=== PATIENT | male | born 1935 | race Caucasian/White ===

== ENCOUNTER 2021-09-24 16:15 | Inpatient (IN) ==
[2021-09-24 16:52] LABS: POC Blood Urea Nitrogen 67 mg/dL (6-20); POC CO2 20 mmol/L (22-30); POC Calcium, Ionized 1.26 mmEq/L (1.16-1.32); POC Chloride 103 mEq/L (96-108); POC Creatinine 0.8 mg/dL (0.6-1.2); POC Glucose, Random 136 mg/dL (70-105); POC Hematocrit 25 % (41-55); POC Potassium 4.4 mEql/L (3.3-5.1); POC Sodium 133 mEq/L (133-145)
[2021-09-24 17:11] LABS: Basophils # (Auto) 0.03 K/mcL (0.00-0.30); Basophils % (Auto) 0.3 % (0.0-2.0); Eosinophils # (Auto) 0.04 K/mcL (0.00-0.70); Eosinophils % (Auto) 0.4 % (0.0-7.0); Hemoglobin 8.7 g/dL (13.7-17.5); Lymphocytes # (Auto) 1.78 K/mcL (1.50-4.80); Lymphocytes % (Auto) 16.4 % (15.5-49.0); Mean Cell Volume 102.3 fL (80.0-100.0); Mean Corpuscular HGB Conc 32.2 g/dL (31.0-36.0); Mean Platelet Volume 9.5 fL (7.4-10.4); Monocytes # (Auto) 1.15 K/mcL (0.10-0.90); Monocytes % (Auto) 10.6 % (1.0-12.0); Neutrophils % (Auto) 72.3 % (38.0-78.0); Platelet Count 226 K/mcL (140-440); RBC 2.64 M/mcL (4.63-6.08); Red Cell Distribution Width 12.4 % (11.5-14.5); WBC 10.8 K/mcL (4.5-11.0)
[2021-09-24] MEDS ORDERED: 0.9 % SODIUM CHLORIDE 1,000 ML IV ONE (17:11)
--- NOTE | 2021-09-24 17:29 | Emergency Department Note ---
Dizziness HPI <Ember Bower PA-C - Last Filed: 09/24/21 19:16> General Chief Complaint: Dizziness Stated Complaint: dizziness Time Seen by Provider: 09/24/21 16:25 Source: patient Mode of arrival: ambulatory History of Present Illness HPI Narrative: 86-year-old male with history of atrial fibrillation on Eliquis presents with acute onset lightheadedness and dizziness this morning. He got up to walk his dogs and felt dizzy and had to lean against his kitchen counter. He had some associated shortness of breath, no palpitations. He did not syncopize. He denies chest pain. Patient had a dark, tarry loose stool this morning. He has no history of GI bleeding. Denies nausea or vomiting. Denies abdominal pain. He has not missed any doses of his Eliquis took his evening dose already today. Related Data Home Medications Medication Instructions Recorded Confirmed apixaban 5 mg tablet (Eliquis) 5 mg PO BID 03/15/18 09/24/21 potassium chloride 20 mEq 20 meq PO QDAY 01/10/20 09/24/21 tablet,extended release atorvastatin 20 mg tablet (Lipitor) 20 mg PO QDAY 02/05/20 09/24/21 omeprazole 20 mg capsule,delayed 20 mg PO QDAY 08/07/20 09/24/21 release furosemide 40 mg tablet 20 mg PO QAM tab 09/22/21 09/24/21 dorzolamide 22.3 mg-timolol 6.8 1 drp OPHTHALMIC (EYE) BID 09/24/21 09/24/21 mg/mL eye drops Previous Rx's Medication Instructions Recorded alfuzosin 10 mg tablet,extended 10 mg PO QDAY #90 tab 04/10/18 release 24 hr (Uroxatral) finasteride 5 mg tablet (Proscar) 5 mg PO QDAY #90 tab 04/10/18 Allergies Allergy/AdvReac Type Severity Reaction Status Date / Time No Known Drug Allergies Allergy Verified 08/10/21 15:52 Review of Systems <Ember Bower PA-C - Last Filed: 09/24/21 19:16> ROS ROS Narrative: Narrative: All systems ED: reviewed and negative except as stated. PFSH <Ember Bower PA-C - Last Filed: 09/24/21 19:16> Narrative Patient History Narrative: Narrative: Medical/Surgical/Family History All Active Problems (Updated 09/24/21 @ 19:54 by Bowen Carrillo MD) GI bleeding (Acute) Sleep disturbance, unspecified (Acute) Close exposure to COVID-19 virus (Acute) GERD with apnea (Acute) Hiatal hernia (Acute) Elevated diaphragm (Acute) Pulmonary nodules (Acute) ZEESHAN on CPAP (Acute) Dizziness (Chronic) TIA (transient ischemic attack) (Chronic) Sinus bradycardia (Chronic) Shortness of breath (Chronic) Pulmonary hypertension (Chronic) Elevated LFTs (Chronic) Leg pain, right (Chronic) Right shoulder pain (Chronic) Macular degeneration (Chronic) Encounter for Health Maintenance Examination in Adult (Chronic) Spondylolysis of lumbosacral region (Chronic) Sleep apnea (Chronic) Paroxysmal atrial fibrillation (Chronic) Obstructive uropathy (Chronic) Low back pain (Chronic) Knee pain (Chronic) Insomnia (Chronic) Hyperlipidemia (Chronic) Hematuria (Chronic 03/20/14) Hearing loss (Chronic) Glaucoma (Chronic) Dupuytren's contracture (Chronic) Anemia (Chronic 03/20/14) TIA (transient ischemic attack) (Chronic) Spondylolysis of lumbosacral region (Chronic) Sleep apnea (Chronic) Paroxysmal atrial fibrillation (Chronic) Obstructive uropathy (Chronic) Low back pain (Chronic) Knee pain, bilateral (Chronic) Insomnia (Chronic) Hyperlipidemia (Chronic) Hematuria (Chronic) Hearing loss (Chronic) Glaucoma (Chronic) Dupuytren's contracture (Chronic) Anemia (Chronic) Dermatochalasis of right upper eyelid (Chronic) Presence of intraocular lens (Chronic) Vitreous degeneration of both eyes (Chronic) Puckering of macula, 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 Christensen Glaucoma Follows with Dr. Christensen Hearing loss uses hearing aids Hearing loss uses hearing aids Hematuria onset 03/20/14 Hematuria (03/20/14) Hiatal hernia Hyperlipidemia Hyperlipidemia Insomnia 2010 - stable on generic Ambien Insomnia 2010 stable on generic ambien Keratoconjunctivitis sicca 05/05/2015 Amparo Knee pain Bilateral knee arthropasty 2006 Knee pain, bilateral bilateral knee arthroplasty 2005 Leg pain, right Low back pain post lumbar surgery with flare of symtoms 11/2010. Repeat MRI; [facility] sequencing in 11/2010 Low back pain Post lumbar surgery with flare of symptoms 11/2010. Repeat MRI; Pain Clinic sequencing 11/2010. Macular degeneration Obstructive uropathy Obstructive uropathy ZEESHAN on CPAP Paroxysmal atrial fibrillation S/P ablation in 2004; continue Sotalol with yearly f/up, usually in March with Dr. Washburn. Paroxysmal atrial fibrillation S/P ablation in 2004; continue Sotalol with yearly follow up, usually each March with Dr. Washburn. Presence of intraocular lens 05/05/2015 Dr Christensen Primary open angle glaucoma 05/05/2015, Amparo Puckering of macula, right eye 05/05/2015 Dr Christensen Pulmonary hypertension Pulmonary nodules Right shoulder pain Shortness of breath Sinus bradycardia Sleep apnea off CPAP since 06/2009 Sleep apnea Off CPAP since 06/2009 Sleep disturbance, unspecified Situational adjustment to his loss of spouse. Spondylolysis of lumbosacral region Spondylolysis of lumbosacral region TIA (transient ischemic attack) TIA (transient ischemic attack) Vitreous degeneration of both eyes 05/05/2015 Dr Christensen Surgical History History of adenoidectomy History of appendectomy History of cardioversion History of cataract surgery Bilateral eye surgery for glaucoma and cataracts History of colonoscopy (11/23/11) Dr. Tan-Uncomplicated internal hemorrhoids and diverticulosis. Recommended repeat in 10 years. History of hand surgery Trigger finger repair-Bilateral release of all fingers. 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 Status post Dupuytren's fasciectomy 2004 Family History Sister Heart valve disorder Sister had heart valve replacement Parkinson's disease Father , at age 52 of heart attack after smoking for many years Myocardial infarction acute Mother , Mother with a history of TIAs TIA (transient ischemic attack) Social History Smoking Status: Never smoker Alcohol Intake Frequency: 0-2 drinks per day Substance Use: does not use Exam <Ember Bower PA-C - Last Filed: 09/24/21 19:16> Narrative Narrative: Narrative: Course <Ember Bower PA-C - Last Filed: 09/24/21 19:16> Course Course Narrative: 86-year-old male presents for dizziness and lightheadedness Reevaluation(s) Reevaluation #1: Obtain basic labs to query for acute blood loss anemia or electrolyte disturbances Obtain orthostatic vital signs and EKG Reevaluation #2: Patient positive orthostatic vital signs with laying SBP 124 mmHg that dropped to 93 mmHg with sitting, heart rate went from 79 bpm 208 bpm. EKG shows normal sinus rhythm with a left bundle branch block. This is unchanged from 01/24/2016. Negative [place] criteria. Reevaluation #3: Upon further questioning the patient endorses that he had a black tarry stool this morning. I did perform a bedside stool guaiac and he had bekah melanic stool and positive guaiac. Give 40 mg IV Protonix x1 dose and type and crossmatch and administer 2 units PRBCs. Consultations Consultation #1: Dr. Carrillo, general surgery has agreed to accept the patient for admission. He would like me to give 2 units PRBCs in the setting of orthostasis and acute bloo d loss anemia secondary to upper GI bleed. Patient is agreeable to admission. Vital Signs Vital signs: Vital Signs Temperature 98.5 F 09/24/21 16:16 Pulse Rate 107 H 09/24/21 16:16 Respiratory Rate 16 09/24/21 16:16 Blood Pressure 132/68 09/24/21 16:16 Pulse Oximetry (%) 100 09/24/21 16:16 Temperature 98.0 F 09/25/21 08:26 Pulse Rate 64 09/25/21 10:16 Respiratory Rate 13 09/25/21 10:16 Blood Pressure 143/64 09/25/21 10:16 Pulse Oximetry (%) 100 09/25/21 10:16 MDM <Ember Bower PA-C - Last Filed: 09/24/21 19:16> MDM Narrative Medical decision making narrative: Upper GI bleed Acute blood loss anemia Patient is been accepted for admission by Dr. Carrillo. 2 units of PRBCs have been ordered. He was given 40 mg of IV Protonix. Plan will be for upper endoscopy tomorrow. Lab Data Result diagrams: 09/25/21 06:00 09/25/21 06:00 Labs: Lab Results 09/24/21 09/24/21 09/24/21 Range/Units 16:36 16:36 16:36 WBC 10.8 (4.5-11.0) K/mcL RBC 2.64 L (4.63-6.08) M/mcL Hgb 8.7 L (13.7-17.5) g/dL Hct 27.0 L (40.1-51.0) % POC Hct 25 L (41-55) % MCV 102.3 H (80.0-100.0) fL MCH 33.0 (26.0-34.0) pg MCHC 32.2 (31.0-36.0) g/dL RDW 12.4 (11.5-14.5) % Plt Count 226 (140-440) K/mcL MPV 9.5 (7.4-10.4) fL Neut % (Auto) 72.3 (38.0-78.0) % Lymph % (Auto) 16.4 (15.5-49.0) % [place] % (Auto) 10.6 (1.0-12.0) % Eos % (Auto) 0.4 (0.0-7.0) % Baso % (Auto) 0.3 (0.0-2.0) % Lymph # (Auto) 1.78 (1.50-4.80) K/mcL [place] # (Auto) 1.15 H (0.10-0.90) K/mcL Eos # (Auto) 0.04 (0.00-0.70) K/mcL Baso # (Auto) 0.03 (0.00-0.30) K/mcL Absolute Neutrophils 7.83 (1.80-8.00) K/mcL POC Sodium 133 (133-145) mEq/L POC Potassium 4.4 (3.3-5.1) mEql/L POC Chloride 103 (96-108) mEq/L POC Total CO2 20 L (22-30) mmol/L POC BUN 67 H (6-20) mg/dL POC Creatinine 0.8 (0.6-1.2) mg/dL POC Glucose 136 H (70-105) mg/dL POC WB Ioniz Calcium 1.26 (1.16-1.32) mmEq/L TSH 3.45 (0.27-5.01) uIU/mL Urine Color Urine Appearance (Clear) Urine pH (5.0-9.0) Ur Specific [place] (1.000-1.035) Urine Protein (Negative) mg/dL Urine Glucose (UA) (Negative) mg/dL Urine Ketones (Negative) mg/dL Urine Occult Blood (Negative) mg/dL Urine Nitrate (Negative) Urine Bilirubin (Negative) mg/dL Urine Urobilinogen mg/dL Ur Leukocyte Esterase (Negative) /uL Ur Culture Indicated? 09/24/21 Range/Units 19:05 WBC (4.5-11.0) K/mcL RBC (4.63-6.08) M/mcL Hgb (13.7-17.5) g/dL Hct (40.1-51.0) % POC Hct (41-55) % MCV (80.0-100.0) fL MCH (26.0-34.0) pg MCHC (31.0-36.0) g/dL RDW (11.5-14.5) % Plt Count (140-440) K/mcL MPV (7.4-10.4) fL Neut % (Auto) (38.0-78.0) % Lymph % (Auto) (15.5-49.0) % [place] % (Auto) (1.0-12.0) % Eos % (Auto) (0.0-7.0) % Baso % (Auto) (0.0-2.0) % Lymph # (Auto) (1.50-4.80) K/mcL [place] # (Auto) (0.10-0.90) K/mcL Eos # (Auto) (0.00-0.70) K/mcL Baso # (Auto) (0.00-0.30) K/mcL Absolute Neutrophils (1.80-8.00) K/mcL POC Sodium (133-145) mEq/L POC Potassium (3.3-5.1) mEql/L POC Chloride (96-108) mEq/L POC Total CO2 (22-30) mmol/L POC BUN (6-20) mg/dL POC Creatinine (0.6-1.2) mg/dL POC Glucose (70-105) mg/dL POC WB Ioniz Calcium (1.16-1.32) mmEq/L TSH (0.27-5.01) uIU/mL Urine Color Yellow Urine Appearance Clear (Clear) Urine pH 6.0 (5.0-9.0) Ur Specific [place] 1.015 (1.000-1.035) Urine Protein Negative (Negative) mg/dL Urine Glucose (UA) Negative (Negative) mg/dL Urine Ketones 5 A (Negative) mg/dL Urine Occult Blood Negative (Negative) mg/dL Urine Nitrate Negative (Negative) Urine Bilirubin Negative (Negative) mg/dL Urine Urobilinogen Negative mg/dL Ur Leukocyte Esterase Negative (Negative) /uL Ur Culture Indicated? No ED POC Tests ED POC Tests: ALEXA - SARS Antigen Negative CC TIME <Ember Bower PA-C - Last Filed: 09/24/21 19:16> Critical Care Time Critical Care Time: Yes Total Critical Care Time: 36 Attestation: I personally spent a total of 36 minutes of critical care time in obtaining history, performing a physical exam, bedside monitoring of interventions, collecting interpreting tests and discussions with consultants but excluding time spent performing procedures, treating other patients and teaching time. Clinical concern for ongoing GI bleeding and hypovolemic shock Intervention: IV fluids, protonix, and 2 units PRBC's Discharge Plan Patient/Caregiver Discharge Instructions Pt seen by HEAD NECK SURGEON/PA only: Yes Patient Disposition: Xfer As Inpt ([facility]) Discharge Date/Time: 09/24/21 20:31 Discharge Location: [facility]
[2021-09-24] MEDS ORDERED: 0.9 % SODIUM CHLORIDE 250 ML IV SCH (19:00)
[2021-09-24] MEDS ORDERED: PANTOPRAZOLE 40 MG VIAL IV ONE ×2 (19:12→21:08)
--- NOTE | 2021-09-24 19:50 | General Surg History&Physical ---
HPI History of Present Illness Patient information: Note initiated : 09/24/21 at 7:50 pm Service Date, if different from initiated Date: [] Patient: George Ruiz 86 y/o M admitted on for dizziness. Chief Complaint: [] Chief complaint: GI bleed History of present illness: Mr. Ruiz is a 86 year old M with history of atrial fibrillation on Eliquis presents with acute onset lightheadedness and dizziness this morning. He got up to walk his dogs and felt dizzy and had to lean against his kitchen counter. He had some associated shortness of breath, no palpitations. He did not syncopize. He denies chest pain. Patient had a dark, tarry loose stool this morning. He has no history of GI bleeding. Denies nausea or vomiting. Denies abdominal pain. He has not missed any doses of his Eliquis took his evening dose already today. On further questioning patient reports that over the last 3 to 4 days his stools have been darker however he started with loose tarry stools this morning. He denies any prior. He does report that he is current on his colonoscopy although he does not remember who or when it was done but he says it was fairly recent. He is on occasional omeprazole but he denies epigastric abdominal pain this time. He has no fevers chills nausea or vomiting or other symptoms. Review of Systems Review of systems: All systems are reviewed, negative other than above PFSH PFSH All Active Problems GI bleeding (Acute) Sleep disturbance, unspecified (Acute) Close exposure to COVID-19 virus (Acute) GERD with apnea (Acute) Hiatal hernia (Acute) Elevated diaphragm (Acute) Pulmonary nodules (Acute) ZEESHAN on CPAP (Acute) Dizziness (Chronic) TIA (transient ischemic attack) (Chronic) Sinus bradycardia (Chronic) Shortness of breath (Chronic) Pulmonary hypertension (Chronic) Elevated LFTs (Chronic) Leg pain, right (Chronic) Right shoulder pain (Chronic) Macular degeneration (Chronic) Encounter for Health Maintenance Examination in Adult (Chronic) Spondylolysis of lumbosacral region (Chronic) Sleep apnea (Chronic) Paroxysmal atrial fibrillation (Chronic) Obstructive uropathy (Chronic) Low back pain (Chronic) Knee pain (Chronic) Insomnia (Chronic) Hyperlipidemia (Chronic) Hematuria (Chronic 03/20/14) Hearing loss (Chronic) Glaucoma (Chronic) Dupuytren's contracture (Chronic) Anemia (Chronic 03/20/14) TIA (transient ischemic attack) (Chronic) Spondylolysis of lumbosacral region (Chronic) Sleep apnea (Chronic) Paroxysmal atrial fibrillation (Chronic) Obstructive uropathy (Chronic) Low back pain (Chronic) Knee pain, bilateral (Chronic) Insomnia (Chronic) Hyperlipidemia (Chronic) Hematuria (Chronic) Hearing loss (Chronic) Glaucoma (Chronic) Dupuytren's contracture (Chronic) Anemia (Chronic) Dermatochalasis of right upper eyelid (Chronic) Presence of intraocular lens (Chronic) Vitreous degeneration of both eyes (Chronic) Puckering of macula, 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 Christensen Glaucoma Follows with Dr. Christensen Hearing loss uses hearing aids Hearing loss uses hearing aids Hematuria onset 03/20/14 Hematuria (03/20/14) Hiatal hernia Hyperlipidemia Hyperlipidemia Insomnia 2010 - stable on generic Ambien Insomnia 2010 stable on generic ambien Keratoconjunctivitis sicca 05/05/2015 Amparo Knee pain Bilateral knee arthropasty 2006 Knee pain, bilateral bilateral knee arthroplasty 2006 Leg pain, right Low back pain post lumbar surgery with flare of symtoms 11/2010. Repeat MRI; [facility] Clinic sequencing in 11/2010 Low back pain Post lumbar surgery with flare of symptoms 11/2010. Repeat MRI; Pain Clinic sequencing 11/2010. Macular degeneration Obstructive uropathy Obstructive uropathy ZEESHAN on CPAP Paroxysmal atrial fibrillation S/P ablation in 2004; continue Sotalol with yearly f/up, usually in March with Dr. Washburn. Paroxysmal atrial fibrillation S/P ablation in 2004; continue Sotalol with yearly follow up, usually each March with Dr. Washburn. Presence of intraocular lens 05/05/2015 Dr Christensen Primary open angle glaucoma 05/05/2015, Amparo Puckering of macula, right eye 05/05/2015 Dr Christensen Pulmonary hypertension Pulmonary nodules Right shoulder pain Shortness of breath Sinus bradycardia Sleep apnea off CPAP since 06/2009 Sleep apnea Off CPAP since 06/2009 Sleep disturbance, unspecified Situational adjustment to his loss of spouse. Spondylolysis of lumbosacral region Spondylolysis of lumbosacral region TIA (transient ischemic attack) TIA (transient ischemic attack) Vitreous degeneration of both eyes 05/05/2015 Dr Christensen Surgical History History of adenoidectomy History of appendectomy History of cardioversion History of cataract surgery Bilateral eye surgery for glaucoma and cataracts History of colonoscopy (11/23/11) Parent-Uncomplicated internal hemorrhoids and diverticulosis. Recommended repeat in 10 years. History of hand surgery Trigger finger repair-Bilateral release of all fingers. 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 Status post Dupuytren's fasciectomy 2004 Family History Sister Heart valve disorder Sister had heart valve replacement Parkinson's disease Father , at age 52 of heart attack after smoking for many years Myocardial infarction acute Mother , Mother with a history of TIAs TIA (transient ischemic attack) Social History marital status: other: 3 children smoking status: Never smoker alcohol intake frequency: 0-2 drinks per day substance use type: does not use MEDS/ALLERGIES Home Medications and Allergies Home Medications Medication Instructions Recorded Confirmed Type apixaban 5 mg tablet (Eliquis) 5 mg PO BID 03/15/18 09/24/21 History alfuzosin 10 mg tablet,extended 10 mg PO QDAY #90 tab 04/10/18 09/24/21 Rx release 24 hr (Uroxatral) finasteride 5 mg tablet (Proscar) 5 mg PO QDAY #90 tab 04/10/18 09/24/21 Rx potassium chloride 20 mEq 20 meq PO QDAY 01/10/20 09/24/21 History tablet,extended release atorvastatin 20 mg tablet (Lipitor) 20 mg PO QDAY 02/05/20 09/24/21 History omeprazole 20 mg capsule,delayed 20 mg PO QDAY 08/07/20 09/24/21 History release furosemide 40 mg tablet 20 mg PO QAM tab 09/22/21 09/24/21 History dorzolamide 22.3 mg-timolol 6.8 1 drp OPHTHALMIC (EYE) BID 09/24/21 09/24/21 History mg/mL eye drops Allergies Allergy/AdvReac Type Severity Reaction Status Date / Time No Known Drug Allergies Allergy Verified 08/10/21 15:52 Physical Examination Vital Signs Vital signs: Temp Pulse Resp BP Pulse Ox 98.5 F 99 H 21 88/52 98 09/24/21 16:16 09/24/21 19:38 09/24/21 19:38 09/24/21 19:38 09/24/21 19:38 General physical appearance General physical exam: well developed, well nourished and no distress Eyes Eye exam: PERRL and normal ocular movement ENT ENT exam: normal pinna, normal nares, normal mucosa, no hearing loss and no congestion Head Head exam IM: Present atraumatic and normocephalic Neck Neck exam: no masses, no bruits, trachea midline, no lymphadenopathy and no venous distension Cardiovascular Cardiovascular exam IM: Present normal rate and rhythm Respiratory Respiratory exam: normal expansion, normal respiratory effort, clear to percussion and clear to auscultation Abdomen Abdomen: Present soft, non tender and bowel sounds Hernia: Present none Genitourinary Genitourinary (Male): Present normal penis with no external lesions Rectum Rectum: Present normal sphincter tone, no hemorrhoids, no tenderness, no masses and no bleeding Integumentary Integumentary: Present no rash, no growths and no abnormal pigmentation Neurologic Neurologic: Present normal coordination and normal sensation Musculoskeletal Musculoskeletal: Present normal gait and normal posture Psychiatric Psychiatric: Present oriented to time, oriented to person, oriented to place, speech is normal and memory intact Results Labs Result diagrams: 09/24/21 16:36 Labs: Abnormal lab results 09/24/21 09/24/21 Range/Units 16:36 16:36 RBC 2.64 L (4.63-6.08) M/mcL Hgb 8.7 L (13.7-17.5) g/dL Hct 27.0 L (40.1-51.0) % POC Hct 25 L (41-55) % MCV 102.3 H (80.0-100.0) fL [place] # (Auto) 1.15 H (0.10-0.90) K/mcL POC Total CO2 20 L (22-30) mmol/L POC BUN 67 H (6-20) mg/dL POC Glucose 136 H (70-105) mg/dL Thyroid panel 09/24/21 Range/Units 16:36 TSH 3.45 (0.27-5.01) uIU/mL Pituitary panel 09/24/21 Range/Units 16:36 TSH 3.45 (0.27-5.01) uIU/mL All other labs normal. A/P Assessment and plan (1) GI bleeding: Plan: This is a pleasant 86-year-old gentleman who presents with dizziness, decreased H&H and dark melanotic stools. This is most consistent with a upper GI bleed. Risk, benefits, alternatives to treatment discussed with the patient at length. He verbalizes understanding and desires to continue with treatment. Plan: I will admit him to the intensive care unit for serial H&H, start him on a Protonix drip and do an EGD on him in the morning. Appreciate hospitalist input to aid with medical manage. Status: Acute Time Spent With Patient Time: Total time spent is greater than 50% in coordination of care (as documented) at patient's floor/unit and/or counseling patient:
[2021-09-24] MEDS ORDERED: ONDANSETRON 4 MG/2 ML VIAL IV PRN (20:04)
[2021-09-24] MEDS ORDERED: MAGNESIUM SULFATE 2 GM/50 ML BAG IV PRN (20:04)
[2021-09-24] MEDS ORDERED: POTASSIUM CHLORIDE 20 MEQ TABLET PO PRN ×2 (20:04)
[2021-09-24] MEDS ORDERED: POTASSIUM CHLORIDE 40 MEQ in DEXTROSE 5% IN WATER 500 ML IV PRN (20:04)
[2021-09-24] MEDS ORDERED: IPRATROPIUM/ALBUTEROL 3 ML AMPUL.NEB NEB PRN (20:04)
[2021-09-24] MEDS ORDERED: METOPROLOL TARTRATE 5 MG/5 ML VIAL IV PRN (20:16)
--- NOTE | 2021-09-24 20:18 | Internal Medicine Consult Note ---
HPI Data of Consult Consult date: 09/24/21 Primary Care Provider: Casey Sparks Consult Narrative Patient Information: Note initiated : 09/24/21 at 8:09 pm Service Date, if different from initiated Date: [] Patient: George Ruiz 86 y/o M admitted on for dizziness. Chief Complaint: [] cc:: CC: Mr. Ruiz is a 86 year old M Who presents today with weakness and black tarry stools. Patient says the stools the past 2 3 days been dark but today it was more of diarrhea and he was weak and lightheaded. Is evaluated in the ED found have a hemoglobin of 8.7. Had positive orthostatic vital signs. Rectal exam was guaiac positive stool. Patient is on Eliquis for a atrial fibrillation. Dr. Carrillo was contacted who will perform endoscopy and asked for hospitalist to consult. Patient denies chest pain nausea vomiting or shortness of breath. Review of Systems: Pertinent positives as above. Denies headache/fever/chills/nausea/vomiting/ chest or abdominal pain/cough/dyspnea. Remaining 10 point review of system reviewed negative PFSH PFSH All Active Problems (Updated 09/24/21 @ 19:54 by Bowen Carrillo MD) GI bleeding (Acute) Sleep disturbance, unspecified (Acute) Close exposure to COVID-19 virus (Acute) GERD with apnea (Acute) Hiatal hernia (Acute) Elevated diaphragm (Acute) Pulmonary nodules (Acute) ZEESHAN on CPAP (Acute) Dizziness (Chronic) TIA (transient ischemic attack) (Chronic) Sinus bradycardia (Chronic) Shortness of breath (Chronic) Pulmonary hypertension (Chronic) Elevated LFTs (Chronic) Leg pain, right (Chronic) Right shoulder pain (Chronic) Macular degeneration (Chronic) Encounter for Health Maintenance Examination in Adult (Chronic) Spondylolysis of lumbosacral region (Chronic) Sleep apnea (Chronic) Paroxysmal atrial fibrillation (Chronic) Obstructive uropathy (Chronic) Low back pain (Chronic) Knee pain (Chronic) Insomnia (Chronic) Hyperlipidemia (Chronic) Hematuria (Chronic 03/20/14) Hearing loss (Chronic) Glaucoma (Chronic) Dupuytren's contracture (Chronic) Anemia (Chronic 03/20/14) TIA (transient ischemic attack) (Chronic) Spondylolysis of lumbosacral region (Chronic) Sleep apnea (Chronic) Paroxysmal atrial fibrillation (Chronic) Obstructive uropathy (Chronic) Low back pain (Chronic) Knee pain, bilateral (Chronic) Insomnia (Chronic) Hyperlipidemia (Chronic) Hematuria (Chronic) Hearing loss (Chronic) Glaucoma (Chronic) Dupuytren's contracture (Chronic) Anemia (Chronic) Dermatochalasis of right upper eyelid (Chronic) Presence of intraocular lens (Chronic) Vitreous degeneration of both eyes (Chronic) Puckering of macula, 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 Christensen Glaucoma Follows with Dr. Christensen Hearing loss uses hearing aids Hearing loss uses hearing aids Hematuria onset 03/20/14 Hematuria (03/20/14) Hiatal hernia Hyperlipidemia Hyperlipidemia Insomnia 2010 - stable on generic Ambien Insomnia 2010 stable on generic ambien Keratoconjunctivitis sicca 05/05/2015 Amparo Knee pain Bilateral knee arthropasty 2006 Knee pain, bilateral bilateral knee arthroplasty 2006 Leg pain, right Low back pain post lumbar surgery with flare of symtoms 11/2010. Repeat MRI; [facility] Clinic sequencing in 11/2010 Low back pain Post lumbar surgery with flare of symptoms 11/2010. Repeat MRI; Pain Clinic sequencing 11/2010. Macular degeneration Obstructive uropathy Obstructive uropathy ZEESHAN on CPAP Paroxysmal atrial fibrillation S/P ablation in 2004; continue Sotalol with yearly f/up, usually in March with Dr. Washburn. Paroxysmal atrial fibrillation S/P ablation in 2004; continue Sotalol with yearly follow up, usually each March with Dr. Washburn. Presence of intraocular lens 05/05/2015 Dr Christensne Primary open angle glaucoma 05/05/2015, Amparo Puckering of macula, right eye 05/05/2015 Dr Christensen Pulmonary hypertension Pulmonary nodules Right shoulder pain Shortness of breath Sinus bradycardia Sleep apnea off CPAP since 06/2009 Sleep apnea Off CPAP since 06/2009 Sleep disturbance, unspecified Situational adjustment to his loss of spouse. Spondylolysis of lumbosacral region Spondylolysis of lumbosacral region TIA (transient ischemic attack) TIA (transient ischemic attack) Vitreous degeneration of both eyes 05/05/2015 Dr Christensen Surgical History History of adenoidectomy History of appendectomy History of cardioversion History of cataract surgery Bilateral eye surgery for glaucoma and cataracts History of colonoscopy (11/23/11) Dr. Tan-Uncomplicated internal hemorrhoids and diverticulosis. Recommended repeat in 10 years. History of hand surgery Trigger finger repair-Bilateral release of all fingers. 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 Status post Dupuytren's fasciectomy 2004 Family History Sister Heart valve disorder Sister had heart valve replacement Parkinson's disease Father , at age 52 of heart attack after smoking for many years Myocardial infarction acute Mother , Mother with a history of TIAs TIA (transient ischemic attack) Social History marital status: other: 3 children smoking status: Never smoker alcohol intake frequency: 0-2 drinks per day substance use type: does not use MEDS/ALLERGIES Home Medications and Allergies Home Medications Medication Instructions Recorded Confirmed Type apixaban 5 mg tablet (Eliquis) 5 mg PO BID 03/15/18 09/24/21 History alfuzosin 10 mg tablet,extended 10 mg PO QDAY #90 tab 04/10/18 09/24/21 Rx release 24 hr (Uroxatral) finasteride 5 mg tablet (Proscar) 5 mg PO QDAY #90 tab 04/10/18 09/24/21 Rx potassium chloride 20 mEq 20 meq PO QDAY 01/10/20 09/24/21 History tablet,extended release atorvastatin 20 mg tablet (Lipitor) 20 mg PO QDAY 02/05/20 09/24/21 History omeprazole 20 mg capsule,delayed 20 mg PO QDAY 08/07/20 09/24/21 History release furosemide 40 mg tablet 20 mg PO QAM tab 09/22/21 09/24/21 History dorzolamide 22.3 mg-timolol 6.8 1 drp OPHTHALMIC (EYE) BID 09/24/21 09/24/21 History mg/mL eye drops Allergies Allergy/AdvReac Type Severity Reaction Status Date / Time No Known Drug Allergies Allergy Verified 08/10/21 15:52 EXAM Constitutional Vitals: Temp Pulse Resp BP Pulse Ox 98.5 F 99 H 21 88/52 98 09/24/21 16:16 09/24/21 19:38 09/24/21 19:38 09/24/21 19:38 09/24/21 19:38 Exam: General: Alert, Awake, No acute Distress Eyes/N/T: EOMI, PERRL, Head/Neck: neck supple, normocephalic atraumatic CV: RRR, No murmurs, normal s1/s2 Pulm: Clear b/l, no wheezing/rhonchi/rales Abd: soft, nontender, +BS x4 Ext: no clubbing/cyanosis/edema Neuro: Alert, no focal deficits, moves all extremities, CN 2-12 grossly intact, symmetrical strength b/l upper/lower, sensations intact b/l upper/lower Skin: warm/dry, mildly pale DATA Data Completed and Pending Labs: Labs from last 24 hours 09/24/21 09/24/21 09/24/21 19:05 16:36 16:36 WBC RBC Hgb Hct POC Hct 25 L MCV MCH MCHC RDW Plt Count MPV Neut % (Auto) Lymph % (Auto) [place] % (Auto) Eos % (Auto) Baso % (Auto) Lymph # (Auto) [place] # (Auto) Eos # (Auto) Baso # (Auto) Absolute Neutrophils POC Sodium 133 POC Potassium 4.4 POC Chloride 103 POC Total CO2 20 L POC BUN 67 H POC Creatinine 0.8 POC Glucose 136 H POC WB Ioniz Calcium 1.26 TSH 3.45 Urine Color Pending Urine Appearance Pending Urine pH Pending Ur Specific [place] Pending Urine Protein Pending Urine Glucose (UA) Pending Urine Ketones Pending Urine Occult Blood Pending Urine Nitrate Pending Urine Bilirubin Pending Urine Urobilinogen Pending Ur Leukocyte Esterase Pending 09/24/21 16:36 WBC 10.8 RBC 2.64 L Hgb 8.7 L Hct 27.0 L POC Hct MCV 102.3 H MCH 33.0 MCHC 32.2 RDW 12.4 Plt Count 226 MPV 9.5 Neut % (Auto) 72.3 Lymph % (Auto) 16.4 [place] % (Auto) 10.6 Eos % (Auto) 0.4 Baso % (Auto) 0.3 Lymph # (Auto) 1.78 [place] # (Auto) 1.15 H Eos # (Auto) 0.04 Baso # (Auto) 0.03 Absolute Neutrophils 7.83 POC Sodium POC Potassium POC Chloride POC Total CO2 POC BUN POC Creatinine POC Glucose POC WB Ioniz Calcium TSH Urine Color Urine Appearance Urine pH Ur Specific [place] Urine Protein Urine Glucose (UA) Urine Ketones Urine Occult Blood Urine Nitrate Urine Bilirubin Urine Urobilinogen Ur Leukocyte Esterase A/P Narrative A/P Narrative: A: *GI bleed, likely upper: *Acute blood loss anemia, symptomatic: 2/2 above *Hypotension, Hypovolemic: 2/2 above *h/o AFib: on Eliquis *ZEESHAN on cpap: *CKD IIIb: Follows with Dr. Garza *GERD: *h/o diastolic (II) LV dysfunction *HLD: on statin P: -2prbc orderd in ED -monitor fluid status closely -Dr. Carrillo for endoscopy -hold lasix for now -protonix gtt per surgery - -ppx: SCD Time Spent With Patient Time: Total time spent is greater than 50% in coordination of care (as documented) at patient's floor/unit and/or counseling patient:
[2021-09-24 20:30] LABS: Appearance,Urine CLEAR (Clear); Bilirubin,Urine Negative (Negative); Color,Urine YELLOW; Culture Indicated,Urine No; Glucose,Urine (UA) Negative (Negative); Ketones,Urine 5 mg/dL (Negative); Leukocyte Esterase,Urine Negative /uL (Negative); Nitrate,Urine Negative (Negative); Protein,Urine Negative (Negative); Specific Gravity,Urine 1.015 (1.000-1.035); Urine Blood Negative (Negative); Urobilinogen,Urine Negative
[2021-09-24] MEDS: DEXTROSE 5%-1/2NS 1,000 ML IV SCH (21:21)
[2021-09-24] MEDS: PANTOPRAZOLE 80 MG in 0.9 % SODIUM CHLORIDE 100 ML IV SCH (21:25)
[2021-09-24] MEDS: DORZOLAMIDE TIMOLOL OU SCH (21:26)
[2021-09-24] MEDS: 0.9 % SODIUM CHLORIDE 10 ML SYRINGE IV SCH (23:50)
[2021-09-25 01:39] LABS: Basophils # (Auto) 0.02 K/mcL (0.00-0.30); Basophils % (Auto) 0.2 % (0.0-2.0); Eosinophils # (Auto) 0.09 K/mcL (0.00-0.70); Hematocrit 22.7 % (40.1-51.0); Hemoglobin 7.4 g/dL (13.7-17.5); Lymphocytes # (Auto) 1.91 K/mcL (1.50-4.80); Lymphocytes % (Auto) 21.8 % (15.5-49.0); Mean Cell Volume 104.1 fL (80.0-100.0); Mean Corpuscular HGB Conc 32.6 g/dL (31.0-36.0); Mean Platelet Volume 9.4 fL (7.4-10.4); Monocytes # (Auto) 1.12 K/mcL (0.10-0.90); Monocytes % (Auto) 12.8 % (1.0-12.0); Neutrophils % (Auto) 64.2 % (38.0-78.0); Platelet Count 170 K/mcL (140-440); RBC 2.18 M/mcL (4.63-6.08); Red Cell Distribution Width 12.5 % (11.5-14.5); WBC 8.8 K/mcL (4.5-11.0)
[2021-09-25] MEDS: 0.9 % SODIUM CHLORIDE 250 ML IV SCH ×2 (02:15→10:48)
[2021-09-25] MEDS: 0.9 % SODIUM CHLORIDE 10 ML SYRINGE IV SCH ×3 (05:42→21:26)
[2021-09-25 06:51] LABS: Basophils # (Auto) 0.04 K/mcL (0.00-0.30); Basophils % (Auto) 0.5 % (0.0-2.0); Eosinophils # (Auto) 0.12 K/mcL (0.00-0.70); Eosinophils % (Auto) 1.6 % (0.0-7.0); Hematocrit 27.7 % (40.1-51.0); Hemoglobin 9.1 g/dL (13.7-17.5); Lymphocytes # (Auto) 1.51 K/mcL (1.50-4.80); Lymphocytes % (Auto) 19.5 % (15.5-49.0); Mean Cell Volume 99.6 fL (80.0-100.0); Mean Corpuscular HGB Conc 32.9 g/dL (31.0-36.0); Mean Platelet Volume 9.4 fL (7.4-10.4); Monocytes # (Auto) 1.07 K/mcL (0.10-0.90); Monocytes % (Auto) 13.8 % (1.0-12.0); Neutrophils % (Auto) 64.6 % (38.0-78.0); Platelet Count 155 K/mcL (140-440); RBC 2.78 M/mcL (4.63-6.08); Red Cell Distribution Width 14.5 % (11.5-14.5); WBC 7.7 K/mcL (4.5-11.0)
[2021-09-25] MEDS: DEXTROSE 5%-1/2NS 1,000 ML IV SCH ×2 (06:56→07:53)
[2021-09-25 07:12] LABS: ALT/SGPT 9 U/L (<40); AST/SGOT 14 U/L (<40); Albumin 2.9 gm/dL (3.2-5.2); Albumin/Globulin Ratio 1.4 (1.0-2.3); Alkaline Phosphatase 39 U/L (39-117); Bilirubin,Direct < 0.2 mg/dL (0-0.3); Bilirubin,Total 0.6 mg/dL (0.1-1.0); Blood Urea Nitrogen 47 mg/dL (8-23); Calcium 7.8 mg/dL (8.6-10.4); Carbon Dioxide 18 mmol/L (22-30); Chloride 108 mmol/L (96-108); Globulin 2.1 gm/dL (2.2-3.7); Glomerular Filtration Rate 82; Glucose 113 mg/dL (70-105); Lactate Dehydrogenase 133 U/L (135-225); Phosphorous 2.4 mg/dL (2.5-4.5); Triglycerides 157 mg/dL (<150); Uric Acid 5.5 mg/dL (2.5-8.0)
[2021-09-25] MEDS ORDERED: PROPOFOL 200 MG/20 ML VIAL IV SCH (07:45)
[2021-09-25] MEDS ORDERED: MIDAZOLAM 2 MG/2 ML VIAL IV SCH (07:45)
[2021-09-25] MEDS: PANTOPRAZOLE 80 MG in 0.9 % SODIUM CHLORIDE 100 ML IV SCH ×3 (07:53→17:35)
[2021-09-25] MEDS ORDERED: EPINEPHrine 1 MG/ML AMPUL IJ ONE (08:15)
--- NOTE | 2021-09-25 08:22 | EKG ---
[facility] Test Date: 2021-09-24 Pat Name: George Ruiz Department: ED Room: Gender: Male Safety Advisor: LR : [id number] Requested By: Ember Bower Order Number: [id number] Reading MD: Ben Vitale Measurements Intervals [place] Rate: 90 P: 29 DE: 230 QRS: -14 QRSD: 134 T: 79 QT: 390 QTc: 478 Interpretive Statements Sinus rhythm Prolonged DE interval Left bundle branch block Baseline wander in lead(s) V2 Electronically Signed On 09-25-2021 8:22:25 PDT by Ben Vitale /store/[email or web address]/[id number].pdf
--- NOTE | 2021-09-25 08:24 | Internal Med Progress Note ---
SUBJECTIVE Subjective Patient information: Note initiated : 09/25/21 at 8:21 am Service Date, if different from initiated Date: [] Patient: George Ruiz a 86 y/o M admitted on 09/24/21 for dizziness. Chief Complaint: [] Interval history: Mr. Ruiz is a 86 year old M Who presents today with weakness and black tarry stools. Patient says the stools the past 2 3 days been dark but today it was more of diarrhea and he was weak and lightheaded. Is evaluated in the ED found have a hemoglobin of 8.7. Had positive orthostatic vital signs. Rectal exam was guaiac positive stool. Patient is on Eliquis for a atrial fibrillation. Dr. Carrillo was contacted who will perform endoscopy and asked for hospitalist to consult. Patient denies chest pain nausea vomiting or shortness of breath. 09/25 Patient underwent EGD which showed a large gastric ulcer. Patient will remain here overnight and monitor for further bleeding and will be on twice a day Protonix. Start on clear liquids advance as tolerated. Will order stool antigen test for pylori. Review of Systems: denies headache/fever/chills/nausea/vomiting/chest or abdominal pain/cough/dyspnea/diarrhea. Otherwise see above. Constitutional Vitals: Vital Signs Temp Pulse Resp BP Pulse Ox 99 F 63 16 127/61 99 09/25/21 08:00 09/25/21 07:01 09/25/21 08:00 09/25/21 08:00 09/25/21 08:00 Period Temp Pulse Resp BP Sys/Castillo Pulse Ox Last 24 Hr 98.2 F-99.1 F 62-107 6-33 86-132/40-80 95-100 Intake and Output 09/24/21 09/25/21 09/25/21 21:59 05:59 13:59 Intake Total 1861 943 3696 Output Total 0 1200 525 Balance 1000 -523 494 Weight 88.178 kg Intake & Output: Intake & Output 09/24/21 09/25/21 09/25/21 21:59 05:59 13:59 Intake Total 8688 664 5084 Output Total 0 1200 525 Balance 1000 -523 494 Weight 88.178 kg Intake: IV 1000 2 1019 Sodium Chloride 0.9% 1,000 ml @ 1000 Wide Open IV [facility] Rx#: [id number] Sodium Chloride 0.9% 250 ml @ 2 20 mls/hr IV .[id number] [facility] Rx#: [id number] Dextrose 5%-1/2Ns IV Solution 1 1017 ,000 ml @ 100 mls/hr IV .Q10H [facility] Rx#:[id number] Protonix 80 mg In Sodium 2 Chloride 0.9% 100 ml @ 8 MG/HR 10 mls/hr IV Q10H [facility] Rx#: [id number] Blood Product 675 Output: Void Amount 0 1200 525 Other: Urine Appearance Clear Clear Urine Color Bright Yellow Bright Yellow Urine Odor Normal Normal # Bowel Movements 0 0 Exam: General: Alert, Awake, No acute Distress Eyes/N/T: EOMI, Head/Neck: neck supple, CV: RRR, No murmurs, Pulm: Clear b/l, no wheezing/rhonchi/rales Abd: soft, nontender, +BS x4 Ext: no clubbing/cyanosis/edema Neuro: Alert, no focal deficits, moves all extremities, Skin: warm/dry, OBJ DATA Labs CBC & Chem 7: 09/25/21 06:00 09/25/21 06:00 Labs: Abnormal Lab Results 09/25/21 09/25/21 09/25/21 06:00 06:00 00:26 RBC 2.78 L 2.18 L Hgb 9.1 L 7.4 L Hct 27.7 L 22.7 L POC Hct MCV 104.1 H [place] % (Auto) 13.8 H 12.8 H [place] # (Auto) 1.07 H 1.12 H Carbon Dioxide 18 L POC Total CO2 POC BUN BUN 47 H Glucose 113 H POC Glucose Calcium 7.8 L Phosphorus 2.4 L Lactate Dehydrogenase 133 L Total Protein 5.0 L Albumin 2.9 L Globulin 2.1 L Triglycerides 157 H Urine Ketones 09/24/21 09/24/21 09/24/21 19:05 16:36 16:36 RBC 2.64 L Hgb 8.7 L Hct 27.0 L POC Hct 25 L MCV 102.3 H [place] % (Auto) [place] # (Auto) 1.15 H Carbon Dioxide POC Total CO2 20 L POC BUN 67 H BUN Glucose POC Glucose 136 H Calcium Phosphorus Lactate Dehydrogenase Total Protein Albumin Globulin Triglycerides Urine Ketones 5 A Meds: Medications Albuterol/Ipratropium (Ipratropium/Albuterol 3 Ml Ampul.Neb) 3 ml NEB Q4HP PRN PRN Reason: Shortness Of Breath Atorvastatin Calcium (Atorvastatin 20 Mg Tablet) 20 mg PO QDAY [facility] Finasteride (Finasteride 5 Mg Tablet) 5 mg PO QDAY [facility] Dextrose/Sodium Chloride (Dextrose 5%-1/2ns Iv Solution) 1,000 mls @ 100 mls/hr IV .Q10H [facility] Last Infusion: 09/25/21 08:03 Dose: 0 mls/hr Documented by: Potassium Chloride 40 meq/ (Dextrose) 520 mls @ 130 mls/hr IV UD PRN PRN Reason: Potassium < 3 Magnesium Sulfate (Magnesium Sulfate) 2 gm in 50 mls @ 50 mls/hr IV UD PRN PRN Reason: Magnesium </= 1.6 Sodium Chloride (Sodium Chloride 0.9%) 250 mls @ 20 mls/hr IV .[id number] [facility] Stop: 09/25/21 14:29 Last Infusion: 09/25/21 05:52 Dose: Infused Documented by: Pantoprazole Sodium 80 mg/ (Sodium Chloride) 100 mls @ 10 mls/hr IV Q10H [facility] Last Infusion: 09/25/21 08:03 Dose: 0 mg/hr, 0 mls/hr Documented by: Metoprolol Tartrate (Metoprolol Tartrate 5 Mg/5 Ml Vial) 5 mg IV Q2HP PRN PRN Reason: Tachyarrhythmias HR>110 Midazolam HCl (Midazolam 2 Mg/2 Ml Vial) 0 mg IV ONCE [facility] Stop: 09/25/21 15:40 Ondansetron HCl (Ondansetron 4 Mg/2 Ml Vial) 4 mg IV Q4HP PRN PRN Reason: Nausea And Vomiting Dorzolamide-Timolol (22.3-6.8 Mg/Ml Drops) 1 dose OU BID [facility] Last Admin: 09/24/21 21:26 Dose: Not Given Documented by: Potassium Chloride (Potassium Chloride 20 Meq Tablet) 40 meq PO UD PRN PRN Reason: Potssium is 3-3.5 Potassium Chloride (Potassium Chloride 20 Meq Tablet) 40 meq PO UD PRN PRN Reason: Potassium < 3 Propofol (Propofol 200 Mg/20 Ml Vial) 0 mg IV UD [facility] Stop: 09/25/21 15:40 Sodium Chloride (0.9 % Sodium Chloride 10 Ml Syringe) 10 ml IV Q8 [facility] Last Admin: 09/25/21 05:42 Dose: 10 ml Documented by: A/P Narrative A/P Narrative: A: *GI bleed: 2/2 PUD probably from stress related to passing away 6-months ago. denies NSAIDS. *Acute blood loss anemia, symptomatic: 2/2 above -s/p 2prbc (09/24) *Hypotension, Hypovolemic: 2/2 above, resolved *h/o AFib: on Eliquis *ZEESHAN on cpap: *CKD IIIb: Follows with Dr. Garza *GERD: *h/o diastolic (II) LV dysfunction *HLD: on statin P: -monitor fluid status -Dr. Carrillo following -restart home lasix -protonix gtt per surgery then to bid -f/u outpt with surgery for eventual f/u egd -h. pylori stool antigen -Clear liquids -ppx: SCD Time Spent With Patient Time: Total time spent is greater than 50% in coordination of care (as documented) at patient's floor/unit and/or counseling patient: QUALITY VTE Deep Vein Thrombosis/Pulmonary Embolism Present on Admission: No
--- NOTE | 2021-09-25 08:34 | EGD Procedure Note ---
EGD Procedure Notes Procedure Information Patient information: Note initiated : 09/25/21 at 8:31 am Service Date: 09/24/21 Patient: George Ruiz 86 y/o M admitted on 09/24/21 for dizziness. Pre-op diagnosis general: Upper GI Post-Op Diagnosis general: Upper GI bleed secondary to a gastric ulcer Procedure: EGD with control of bleed Procedure Narrative: After risk benefits and alternatives to the procedure were discussed with the patient at length he verbalized understanding and desire to continue with the procedure. Patient was taken to endoscopy. Surgical timeout was taken to verify patient and procedure being performed sedation was administered with 1 mg of Versed and 150 mcg of propofol. An adult gastroscope was entered and advanced under direct vision into the second portion of the duodenum. The antrum was fully inspected, the scope was retroflexed in the stomach. Full examination revealed normal duodenum, a 1 cm gastric ulcer approximately 1 cm from the pylorus. There is no evidence of active bleed, however evidence of recent bleed. The ulcer was injected with epinephrine. The remainder the stomach was within normal limits other than a small hiatal hernia without evidence of bleed. GE junction was at 38 cm and the esophagus was normal on full exam. EBL none. Patient tolerated procedure well. Assessment: Upper GI bleed secondary to a gastric ulcer, this was injected with epinephrine. 0.4. Image EGD: 1. 1 cm gastric ulcer.
[2021-09-25] MEDS: DORZOLAMIDE TIMOLOL OU SCH ×2 (10:33→21:27)
[2021-09-25] MEDS: ATORVASTATIN 20 MG TABLET PO SCH (10:33)
[2021-09-25] MEDS: FINASTERIDE 5 MG TABLET PO SCH (10:33)
[2021-09-25] MEDS ORDERED: 0.9 % SODIUM CHLORIDE 250 ML IV SCH (23:30)
[2021-09-26] MEDS: PANTOPRAZOLE 80 MG in 0.9 % SODIUM CHLORIDE 100 ML IV SCH (04:12)
[2021-09-26] MEDS: 0.9 % SODIUM CHLORIDE 10 ML SYRINGE IV SCH (04:12)
--- NOTE | 2021-09-26 08:00 | Internal Med Progress Note ---
SUBJECTIVE Subjective Patient information: Note initiated : 09/26/21 at 7:58 am Service Date, if different from initiated Date: [] Patient: George Ruiz 86 y/o M admitted on 09/24/21 for dizziness. Chief Complaint: [] Interval history: Mr. Ruiz is a 86 year old M Who presents today with weakness and black tarry stools. Patient says the stools the past 2 3 days been dark but today it was more of diarrhea and he was weak and lightheaded. Is evaluated in the ED found have a hemoglobin of 8.7. Had positive orthostatic vital signs. Rectal exam was guaiac positive stool. Patient is on Eliquis for a atrial fibrillation. Dr. Carrillo was contacted who will perform endoscopy and asked for hospitalist to consult. Patient denies chest pain nausea vomiting or shortness of breath. 09/25 Patient underwent EGD which showed a large gastric ulcer. Patient will remain here overnight and monitor for further bleeding and will be on twice a day Protonix. Start on clear liquids advance as tolerated. Will order stool antigen test for pylori. 09/26 No bleeding overnight. No new complaints other than wanting his diet advanced. Review of Systems: denies headache/fever/chills/nausea/vomiting/chest or abdominal pain/cough/dyspnea/diarrhea. Otherwise see above. Constitutional Vitals: Vital Signs Temp Pulse Resp BP Pulse Ox 98.7 F 73 14 152/72 99 09/26/21 07:27 09/26/21 07:27 09/26/21 07:27 09/26/21 07:27 09/26/21 07:27 Period Temp Pulse Resp BP Sys/Castillo Pulse Ox Last 24 Hr 97.4 F-99 F 57-81 05-17 86-152/54-84 98-100 Intake and Output 09/25/21 09/26/21 09/26/21 21:59 05:59 13:59 Intake Total 806 830 Output Total 1250 1900 550 Balance -444 -1070 -550 Weight 91.172 kg Intake & Output: Intake & Output 09/25/21 09/26/21 09/26/21 21:59 05:59 13:59 Intake Total 806 830 Output Total 1250 1900 550 Balance -444 -1070 -550 Weight 91.172 kg Intake: IV 86 350 Sodium Chloride 0.9% 250 ml @ 250 20 mls/hr IV .[id number] [facility] Rx#: [id number] Protonix 80 mg In Sodium 86 100 Chloride 0.9% 100 ml @ 8 MG/HR 10 mls/hr IV Q10H [facility] Rx#: [id number] Oral 720 480 Output: Void Amount 1250 1900 550 Other: Urine Appearance Clear Urine Color Light [place] Urine Odor Normal Exam: General: Alert, Awake, No acute Distress Eyes/N/T: EOMI, Head/Neck: neck supple, CV: RRR, No murmurs, Pulm: Clear b/l, no wheezing/rhonchi/rales Abd: soft, nontender, +BS x4 Ext: no clubbing/cyanosis/edema Neuro: Alert, no focal deficits, moves all extremities, Skin: warm/dry, OBJ DATA Labs CBC & Chem 7: 09/25/21 06:00 09/25/21 06:00 Labs: Abnormal Lab Results 09/25/21 09/25/21 09/25/21 06:00 06:00 00:26 RBC 2.78 L 2.18 L Hgb 9.1 L 7.4 L Hct 27.7 L 22.7 L POC Hct MCV 104.1 H [place] % (Auto) 13.8 H 12.8 H [place] # (Auto) 1.07 H 1.12 H Carbon Dioxide 18 L POC Total CO2 POC BUN BUN 47 H Glucose 113 H POC Glucose Calcium 7.8 L Phosphorus 2.4 L Lactate Dehydrogenase 133 L Total Protein 5.0 L Albumin 2.9 L Globulin 2.1 L Triglycerides 157 H Urine Ketones 09/24/21 09/24/21 09/24/21 19:05 16:36 16:36 RBC 2.64 L Hgb 8.7 L Hct 27.0 L POC Hct 25 L MCV 102.3 H [place] % (Auto) [place] # (Auto) 1.15 H Carbon Dioxide POC Total CO2 20 L POC BUN 67 H BUN Glucose POC Glucose 136 H Calcium Phosphorus Lactate Dehydrogenase Total Protein Albumin Globulin Triglycerides Urine Ketones 5 A Meds: Medications Albuterol/Ipratropium (Ipratropium/Albuterol 3 Ml Ampul.Neb) 3 ml NEB Q4HP PRN PRN Reason: Shortness Of Breath Atorvastatin Calcium (Atorvastatin 20 Mg Tablet) 20 mg PO QDAY [facility] Last Admin: 09/25/21 10:33 Dose: 20 mg Documented by: Finasteride (Finasteride 5 Mg Tablet) 5 mg PO QDAY [facility] Last Admin: 09/25/21 10:33 Dose: 5 mg Documented by: Potassium Chloride 40 meq/ (Dextrose) 520 mls @ 130 mls/hr IV UD PRN PRN Reason: Potassium < 3 Magnesium Sulfate (Magnesium Sulfate) 2 gm in 50 mls @ 50 mls/hr IV UD PRN PRN Reason: Magnesium </= 1.6 Pantoprazole Sodium 80 mg/ (Sodium Chloride) 100 mls @ 10 mls/hr IV Q10H [facility] Last Admin: 09/26/21 04:12 Dose: 8 mg/hr, 10 mls/hr Documented by: Sodium Chloride (Sodium Chloride 0.9%) 250 mls @ 20 mls/hr IV .[id number] [facility] Last Admin: 09/26/21 00:02 Dose: 20 mls/hr Documented by: Metoprolol Tartrate (Metoprolol Tartrate 5 Mg/5 Ml Vial) 5 mg IV Q2HP PRN PRN Reason: Tachyarrhythmias HR>110 Ondansetron HCl (Ondansetron 4 Mg/2 Ml Vial) 4 mg IV Q4HP PRN PRN Reason: Nausea And Vomiting Dorzolamide-Timolol (22.3-6.8 Mg/Ml Drops) 1 dose OU BID [facility] Last Admin: 09/25/21 21:27 Dose: Not Given Documented by: Potassium Chloride (Potassium Chloride 20 Meq Tablet) 40 meq PO UD PRN PRN Reason: Potssium is 3-3.5 Potassium Chloride (Potassium Chloride 20 Meq Tablet) 40 meq PO UD PRN PRN Reason: Potassium < 3 Sodium Chloride (0.9 % Sodium Chloride 10 Ml Syringe) 10 ml IV Q8 [facility] Last Admin: 09/26/21 04:12 Dose: 10 ml Documented by: A/P Narrative A/P Narrative: A: *GI bleed: 2/2 PUD probably from stress related to passing away 6-months ago. denies NSAIDS. *Acute blood loss anemia, symptomatic: 2/2 above -s/p 2prbc (09/24) *Hypotension, Hypovolemic: 2/2 above, resolved *h/o AFib: on Eliquis *ZEESHAN on cpap: *CKD IIIb: Follows with Dr. Garza *GERD: *h/o diastolic (II) LV dysfunction *HLD: on statin P: -Dr. Carrillo following -protonix gtt to bid -hold home eliquis for 5 days -f/u outpt with surgery for eventual f/u egd -h. pylori stool antigen -Cleared from hospital standpoint for discharge -ppx: SCD Time Spent With Patient Time: Total time spent is greater than 50% in coordination of care (as documented) at patient's floor/unit and/or counseling patient: QUALITY VTE Deep Vein Thrombosis/Pulmonary Embolism Present on Admission: No
[2021-09-26] MEDS ORDERED: PANTOPRAZOLE 40 MG PACKET PO SCH (08:40)
[2021-09-26] MEDS: FINASTERIDE 5 MG TABLET PO SCH (08:55)
[2021-09-26] MEDS: ATORVASTATIN 20 MG TABLET PO SCH (08:55)
[2021-09-26] MEDS: DORZOLAMIDE TIMOLOL OU SCH (08:56)
[2021-09-26] MEDS ORDERED: ALFUZOSIN 10 MG PO SCH (09:00)
[2021-09-26] MEDS ORDERED: FUROSEMIDE 20 MG TABLET PO SCH (09:00)
--- NOTE | 2021-09-26 09:06 | General Surgery Progress Note ---
SUBJECTIVE Subjective Patient information: Note initiated : 09/26/21 at 9:05 am Service Date, if different from initiated Date: [] Patient: George Ruiz 86 y/o M admitted on 09/24/21 for dizziness. Chief Complaint: [] Interval history: Status post EGD with gastric antral ulcer, injected with epinephrine. Every 6 hour CBCs stopped, patient transferred out of ICU and downgraded to floor status by hospitalist. Patient has no complaints today, tolerating diet. Constitutional Vitals: Vital Signs Temp Pulse Resp BP Pulse Ox 98.7 F 73 14 152/72 99 09/26/21 07:27 09/26/21 07:27 09/26/21 07:27 09/26/21 07:27 09/26/21 07:27 Period Temp Pulse Resp BP Sys/Castillo Pulse Ox Last 24 Hr 97.4 F-98.7 F 57-76 11-21 86-152/54-77 98-100 Intake and Output 09/25/21 09/26/21 09/26/21 21:59 05:59 13:59 Intake Total 806 830 480 Output Total 1250 1900 550 Balance -444 -1070 -70 Weight 201 lb Intake & Output: Intake & Output 09/25/21 09/26/21 09/26/21 21:59 05:59 13:59 Intake Total 806 830 480 Output Total 1250 1900 550 Balance -444 -1070 -70 Weight 201 lb Intake: IV 86 350 Sodium Chloride 0.9% 250 ml @ 250 20 mls/hr IV .[id number] GERI Rx#: [id number] Protonix 80 mg In Sodium 86 100 Chloride 0.9% 100 ml @ 8 MG/HR 10 mls/hr IV Q10H GERI Rx#: [id number] Oral 720 480 480 Output: Void Amount 1250 1900 550 Other: Meal Breakfast Percent of Meal Consumed 100% Feeding Ability Independent Urine Appearance Clear Urine Color Light Anabelle Urine Odor Normal General appearance: cooperative and no acute distress GI/Abdominal GI/Abdominal exam: Present soft; Absent distended A/P Narrative A/P Narrative: Is a pleasant 86-year-old gentleman who presented with an upper GI bleed secondary to a gastric ulcer. No further evidence of bleed, hematocrit responded to blood transfusion. Patient is to be discharged home today. He will follow-up with me in 2 to 3 weeks to repeat EGD in 6 weeks. Time Spent With Patient Time: Total time spent is greater than 50% in coordination of care (as documented) at patient's floor/unit and/or counseling patient:
--- NOTE | 2021-09-26 09:08 | Discharge Summary ---
Discharge Provider Provider Patient information: Note initiated : 09/26/21 at 9:06 am Service Date, if different from initiated Date: [] Patient: George Ruiz 86 y/o M admitted on 09/24/21 for dizziness. Chief Complaint: [] Date of admission: 09/24/21 20:31 Discharge date: 09/26/21 Primary care physician: Casey Sparks Consults: 09/24/21 Consult to Physician [CONS] Stat Comment: Consulting Provider: Tawanda Choi Reason For Exam: Physician to Consult Consult to Physician [CONS] Stat Comment: Consulting Provider: Bowen Carrillo Reason For Exam: Physician to Consult 09/24/21 19:48 Consult to Physician [CONS] Routine Comment: Consulting Provider: Tawanda Choi Reason For Exam: Physician to Consult COURSE Hospital Course Hospital course: Patient was admitted to the hospital with a upper GI bleed, he underwent a EGD with 1 cm deep ulcer in the prepyloric region. After EGD he remained stable with no further evidence of bleed. Discharge diagnosis: Upper GI bleed Procedures: EGD with control of bleed Time Spent with Patient Time attestation: Total time spent providing and/or coordinating discharge services: Physical Examination Vital Signs Vital signs: Temp Pulse Resp BP Pulse Ox 98.7 F 73 14 152/72 99 09/26/21 07:27 09/26/21 07:27 09/26/21 07:27 09/26/21 07:27 09/26/21 07:27 Discharge Plan Patient/Caregiver Discharge Instructions Activity: increase activity as tolerated Diet: Regular Diet Activity Restrictions/Additional Instructions: Resume normal activity as tolerated. Follow-up with me in clinic in 2 to 3 weeks. Hold Eliquis, resume 10/02/2021. Increase omeprazole to 40 mg p.o. twice daily x30 days. Prescriptions: New omeprazole 40 mg capsule,delayed release(DR/EC) 40 mg PO BID Qty: 60 0RF Continued apixaban [Eliquis] 5 mg tablet 5 mg PO BID 0RF alfuzosin [Uroxatral] 10 mg tablet extended release 24 hr 10 mg PO QDAY Qty: 90 1RF Rx Instructions: administer after the same meal each day finasteride [Proscar] 5 mg tablet 5 mg PO QDAY Qty: 90 2RF potassium chloride 20 mEq tablet extended release 20 meq PO QDAY 0RF furosemide 40 mg tablet 20 mg PO QAM 0RF atorvastatin [Lipitor] 20 mg tablet 20 mg PO QDAY 0RF dorzolamide-timolol 22.3-6.8 mg/mL Drops 1 drp OPHTHALMIC (EYE) BID 0RF Discontinued omeprazole 20 mg capsule,delayed release(DR/EC) 20 mg PO QDAY 0RF Follow Up Plan Follow up with: Casey Sparks MD [Primary Care Provider] - Patient Disposition: Home, Self-Care Overall status at discharge: patient is back to baseline Pending Pending Pending: Resuscitation Status Resuscitate (Full Code) Diet Clear Liquid Diet Start Sat Sep 25 08 Atorvastatin Calcium (Atorvastatin 20 Mg Tablet) 20 mg PO QDAY [facility] Last Admin: 09/26/21 08:55 Dose: 20 mg Documented by: Admin: 09/25/21 10:33 Dose: 20 mg Documented by: BEATRIZ Finasteride (Finasteride 5 Mg Tablet) 5 mg PO QDAY [facility] Last Admin: 09/26/21 08:55 Dose: 5 mg Documented by: Admin: 09/25/21 10:33 Dose: 5 mg Documented by: BEATRIZ Furosemide (Furosemide 20 Mg Tablet) 20 mg PO DAILY [facility] Last Admin: 09/26/21 08:55 Dose: 20 mg Documented by: EMELYN Pantoprazole Sodium (Pantoprazole 40 Mg Packet) 40 mg PO BIDAC [facility] Last Admin: 09/26/21 08:55 Dose: 40 mg Documented by: EMELYN Dorzolamide-Timolol (22.3-6.8 Mg/Ml Drops) 1 dose OU BID [facility] Last Admin: 09/26/21 08:56 Dose: Not Given Documented by: Admin: 09/25/21 21:27 Dose: Not Given Documented by: Admin: 09/25/21 10:33 Dose: Not Given Documented by: Admin: 09/24/21 21:26 Dose: Not Given Documented by: [email or web address] Alfuzosin [Uroxatral ] 10 Mg Tablet Extended Release 1 dose PO QDAY [facility] Last Admin: 09/26/21 08:56 Dose: Not Given Documented by: EMELYN Sodium Chloride (0.9 % Sodium Chloride 10 Ml Syringe) 10 ml IV Q8 GERI Last Admin: 09/26/21 04:12 Dose: 10 ml Documented by: Admin: 09/25/21 21:26 Dose: 10 ml Documented by: Admin: 09/25/21 13:22 Dose: Not Given Documented by: Admin: 09/25/21 05:42 Dose: 10 ml Documented by: Admin: 09/24/21 23:50 Dose: Not Given Documented by: NATALI Shift Summary 09/26/21 01:35 Shift Summary by Raine Garcia, calls appropriately, Up with SBA/FWW/GB. Has received 2 units PRBC during stay. EGD done yesterday and 1.1 cm ulcer which was cauterized. History of afib, eliquis on hold. Protonix drip @ 10 with NS @ TKO. Uses urinal. Need a stool sample for H pylori. Skin intact except for a healing surgical site to lower medial abdomen from a penile implant. Patients VSS have been stable on room air. Will update at bedside. Initialized on 09/26/21 01:35 - END OF NOTE
== END 2021-09-26 10:40 | disposition home or self-care (01) | DRG 378 ==
LOC: ED 16:15 → ICU 20:31 → MEDSUR 09-25 12:52
PROVIDERS: ADMIT Surgery; ATTEND Surgery

== ENCOUNTER 2024-06-29 06:05 | Observation (INO) ==
[2024-06-29] MEDS ORDERED: IOPAMIDOL 100 ML BOTTLE IV ONE (06:06)
[2024-06-29] MEDS: 0.9 % SODIUM CHLORIDE 1,000 ML IV ONE (06:39)
[2024-06-29] MEDS: PANTOPRAZOLE 40 MG VIAL IV ONE ×2 (06:39→10:00)
[2024-06-29 07:04] LABS: ALT/SGPT 23 U/L (<40); AST/SGOT 20 U/L (<40); Albumin 3.9 gm/dL (3.2-5.2); Alkaline Phosphatase 81 U/L (39-117); Bilirubin,Total 0.9 mg/dL (0.1-1.0); Blood Urea Nitrogen 69 mg/dL (8-23); Calcium 9.4 mg/dL (8.6-10.4); Carbon Dioxide 19 mmol/L (22-30); Chloride 110 mmol/L (96-108); Glomerular Filtration Rate 80; Glucose 131 mg/dL (70-105); Potassium 4.2 mmol/L (3.3-5.1); Sodium 140 mmol/L (133-145)
[2024-06-29 07:06] LABS: Basophils # (Auto) 0.04 K/mcL (0.00-0.30); Basophils % (Auto) 0.3 % (0.0-2.0); Eosinophils # (Auto) 0.13 K/mcL (0.00-0.70); Eosinophils % (Auto) 0.9 % (0.0-7.0); Hematocrit 24.5 % (40.1-51.0); Hemoglobin 7.8 g/dL (13.7-17.5); Lymphocytes % (Auto) 8.7 % (15.5-49.0); Mean Cell Volume 104.3 fL (80.0-100.0); Mean Corpuscular HGB Conc 31.8 g/dL (31.0-36.0); Mean Platelet Volume 9.9 fL (8.8-12.5); Monocytes # (Auto) 1.18 K/mcL (0.10-0.90); Monocytes % (Auto) 8.6 % (1.0-12.0); Neutrophils % (Auto) 81.1 % (38.0-78.0); Platelet Count 181 K/mcL (140-440); RBC 2.35 M/mcL (4.63-6.08); WBC 13.8 K/mcL (4.5-11.0)
[2024-06-29 08:09] LABS: Appearance,Urine Clear (Clear); Bilirubin,Urine Negative (Negative); Color,Urine Yellow; Glucose,Urine (UA) Negative (Negative); Ketones,Urine Negative (Negative); Leukocyte Esterase,Urine Negative /uL (Negative); Nitrate,Urine Negative (Negative); Protein,Urine Negative (Negative); Urine Blood Negative ery/mcL (Negative); Urine Hyaline Cast 1 /lph (0-2); Urine RBC 0 /hpf (0-3); Urine Squamous Epithelial Cell 0 /hpf (0-4); Urine WBC 0 /hpf (0-4)
[2024-06-29] MEDS: 0.9 % SODIUM CHLORIDE 250 ML IV SCH ×2 (11:53→14:45)
[2024-06-29] MEDS: PANTOPRAZOLE 80 MG in 0.9 % SODIUM CHLORIDE 100 ML IV SCH (11:53)
[2024-06-29] MEDS ORDERED: IPRATROPIUM/ALBUTEROL 3 ML AMPUL.NEB NEB PRN (12:57)
[2024-06-29] MEDS ORDERED: ONDANSETRON 4 MG/2 ML VIAL IV PRN (12:57)
[2024-06-29] MEDS ORDERED: MAGNESIUM SULFATE 2 GM/50 ML BAG IV PRN (12:57)
[2024-06-29] MEDS ORDERED: METOCLOPRAMIDE 10 MG/2 ML VIAL IV PRN (12:57)
[2024-06-29] MEDS ORDERED: POTASSIUM CHLORIDE 40 MEQ in DEXTROSE 5% IN WATER 500 ML IV PRN (12:57)
[2024-06-29] MEDS ORDERED: POTASSIUM CHLORIDE 20 MEQ TABLET PO PRN (12:57)
[2024-06-29] MEDS ORDERED: ACETAMINOPHEN 160 MG/5 ML ORAL.SOL PO PRN (12:57)
[2024-06-29] MEDS ORDERED: METOPROLOL TARTRATE 5 MG/5 ML VIAL IV PRN (12:57)
[2024-06-29] MEDS ORDERED: SENNOSIDES 1 TABLET PO PRN (12:57)
[2024-06-29] MEDS ORDERED: POLYETHYLENE GLYCOL 3350 17 GM PACKET PO PRN (12:57)
[2024-06-29 13:36] LABS: Hematocrit 23.5 % (40.1-51.0); Hemoglobin 7.3 g/dL (13.7-17.5)
[2024-06-29] MEDS: FUROSEMIDE 20 MG/2 ML VIAL IV ONE ×2 (17:24→17:32)
[2024-06-29] MEDS: SUCRALFATE 1 GM/10 ML ORAL.SUSP PO SCH (20:15)
[2024-06-29] MEDS: DORZOLAMIDE TIMOLOL OU SCH (20:15)
[2024-06-29] MEDS: FINASTERIDE 5 MG TABLET PO SCH (20:15)
[2024-06-29] MEDS: ATORVASTATIN 20 MG TABLET PO SCH (20:15)
[2024-06-30] MEDS: PANTOPRAZOLE 40 MG VIAL IV ONE (05:46)
[2024-06-30 06:40] LABS: Basophils # (Auto) 0.03 K/mcL (0.00-0.30); Basophils % (Auto) 0.4 % (0.0-2.0); Eosinophils # (Auto) 0.29 K/mcL (0.00-0.70); Eosinophils % (Auto) 3.5 % (0.0-7.0); Hematocrit 26.4 % (40.1-51.0); Hemoglobin 8.6 g/dL (13.7-17.5); Lymphocytes # (Auto) 1.68 K/mcL (1.50-4.80); Lymphocytes % (Auto) 20.3 % (15.5-49.0); Mean Cell Volume 99.6 fL (80.0-100.0); Mean Corpuscular HGB Conc 32.6 g/dL (31.0-36.0); Mean Platelet Volume 9.9 fL (8.8-12.5); Monocytes # (Auto) 0.95 K/mcL (0.10-0.90); Monocytes % (Auto) 11.5 % (1.0-12.0); Neutrophils % (Auto) 64.1 % (38.0-78.0); Platelet Count 153 K/mcL (140-440); RBC 2.65 M/mcL (4.63-6.08); Red Cell Distribution Width 17.1 % (11.5-14.5); WBC 8.3 K/mcL (4.5-11.0)
[2024-06-30 07:19] LABS: ALT/SGPT 21 U/L (<40); AST/SGOT 26 U/L (<40); Albumin 3.3 gm/dL (3.2-5.2); Albumin/Globulin Ratio 1.5 (1.0-2.3); Alkaline Phosphatase 70 U/L (39-117); Bilirubin,Direct 0.8 mg/dL (<0.3); Bilirubin,Total 1.6 mg/dL (0.1-1.0); Blood Urea Nitrogen 38 mg/dL (8-23); Calcium 8.6 mg/dL (8.6-10.4); Carbon Dioxide 18 mmol/L (22-30); Chloride 114 mmol/L (96-108); Globulin 2.2 gm/dL (2.2-3.7); Glomerular Filtration Rate 80; Glucose 89 mg/dL (70-105); Lactate Dehydrogenase 151 U/L (135-225); Phosphorous 2.3 mg/dL (2.5-4.5); Potassium 3.2 mmol/L (3.3-5.1); Sodium 143 mmol/L (133-145); Triglycerides 147 mg/dL (<150); Uric Acid 6.9 mg/dL (2.5-8.0)
[2024-06-30] MEDS ORDERED: KETAMINE 50 MG/ML ML IV PRN (08:02)
[2024-06-30] MEDS ORDERED: MIDAZOLAM 2 MG/2 ML VIAL IV SCH (08:15)
[2024-06-30] MEDS ORDERED: PROPOFOL 200 MG/20 ML VIAL IV SCH (08:15)
[2024-06-30] MEDS: SODIUM BICARBONATE 650 MG TABLET PO SCH (10:45)
[2024-06-30] MEDS: POTASSIUM CHLORIDE 20 MEQ TABLET PO PRN (10:45)
[2024-06-30] MEDS: FUROSEMIDE 20 MG TABLET PO SCH (10:45)
[2024-06-30] MEDS ORDERED: ONDANSETRON 4 MG/2 ML VIAL IV PRN (11:24)
[2024-06-30] MEDS: 0.9 % SODIUM CHLORIDE 10 ML SYRINGE IV SCH (15:10)
[2024-06-30] MEDS: PANTOPRAZOLE 40 MG TABLET PO SCH (17:16)
[2024-06-30] MEDS: PANTOPRAZOLE 40 MG TABLET ONE (17:33)
[2024-06-30] MEDS: MELATONIN 3 MG TABLET PO PRN (20:00)
[2024-06-30] MEDS: ZOLPIDEM 5 MG TABLET PO PRN (23:33)
[2024-07-01 06:01] LABS: Basophils # (Auto) 0.04 K/mcL (0.00-0.30); Basophils % (Auto) 0.5 % (0.0-2.0); Eosinophils % (Auto) 3.6 % (0.0-7.0); Hematocrit 25.3 % (40.1-51.0); Hemoglobin 8.2 g/dL (13.7-17.5); Lymphocytes # (Auto) 1.36 K/mcL (1.50-4.80); Lymphocytes % (Auto) 16.2 % (15.5-49.0); Mean Corpuscular HGB Conc 32.4 g/dL (31.0-36.0); Mean Platelet Volume 9.7 fL (8.8-12.5); Monocytes # (Auto) 1.08 K/mcL (0.10-0.90); Monocytes % (Auto) 12.9 % (1.0-12.0); Neutrophils % (Auto) 66.3 % (38.0-78.0); Platelet Count 146 K/mcL (140-440); RBC 2.48 M/mcL (4.63-6.08); Red Cell Distribution Width 17.4 % (11.5-14.5); WBC 8.4 K/mcL (4.5-11.0)
[2024-07-01 06:24] LABS: ALT/SGPT 24 U/L (<40); AST/SGOT 29 U/L (<40); Albumin 3.4 gm/dL (3.2-5.2); Albumin/Globulin Ratio 1.5 (1.0-2.3); Alkaline Phosphatase 72 U/L (39-117); Bilirubin,Direct 0.5 mg/dL (<0.3); Bilirubin,Total 0.9 mg/dL (0.1-1.0); Blood Urea Nitrogen 22 mg/dL (8-23); Calcium 8.5 mg/dL (8.6-10.4); Carbon Dioxide 22 mmol/L (22-30); Chloride 114 mmol/L (96-108); Globulin 2.2 gm/dL (2.2-3.7); Glomerular Filtration Rate 80; Glucose 99 mg/dL (70-105); Lactate Dehydrogenase 168 U/L (135-225); Potassium 3.5 mmol/L (3.3-5.1); Sodium 145 mmol/L (133-145); Triglycerides 101 mg/dL (<150); Uric Acid 6.8 mg/dL (2.5-8.0)
[2024-07-01] MEDS: NEUTRA PHOS 1 PACKET PO SCH (09:34)
[2024-07-01] MEDS ORDERED: PHENYLephrine 1 MG/10 ML SYRINGE (ANEST) IV ONE (10:18)
[2024-07-01] MEDS ORDERED: GLYCOPYRROLATE 0.2 MG/ML VIAL IV ONE (10:18)
[2024-07-01] MEDS ORDERED: PROPOFOL 200 MG/20 ML VIAL IV ONE (10:18)
[2024-07-01] MEDS ORDERED: LIDOCAINE 2% PF 5 ML VIAL IJ ONE (10:18)
[2024-07-01 10:45] VITALS: TEMP 98; O2SAT 97
== END 2024-07-01 10:19 | disposition home or self-care (01) ==
LOC: ICU 06:05 → ED 06:05 → ICU 12:35
PROVIDERS: ADMIT Internal Medicine; ATTEND Internal Medicine